=== PATIENT | female | born 1960 | race Caucasian/White ===

== ENCOUNTER 2016-08-13 00:52 | Day surgery (SDC) | payer OTHER ==
[~2016-08-13] VITALS: Ht 168.9 cm; Wt 104.0 kg
[2016-08-13] VITALS (10 sets, daily range): BP systolic 119–141; BP diastolic 70–90; PULSE 71–89; RESP 13–18; O2SAT 100
[~2016-08-13 00:52] MED LIST: ALPR0.5T PO; BUTA1CAP45 PO; CA C1TAB86 PO; CHOL10008 PO; EFLO30CR2 TP; FERR-83 PO; FOLI1TAB5 PO; LEVO125T2 PO; LIP40 PO; LIRA0.6P SQ; LISI2.5T PO; METF500T4 PO; OMEP20CA11 PO; RES15 PO; SPIR50TA2 PO; TERB15CR18 TP; TERB250T11 PO; ZOLM5TAB8 PO
[2016-08-13] MEDS ORDERED: 0.9% Sodium Chloride 1,000 ML IV ONE (07:01)
[2016-08-13] MEDS ORDERED: Ondansetron 2 mg/mL 2 mL Inj ONE (07:53)
[2016-08-13 07:59] LABS: BASOPHILS % (AUTO) 0.2 % (0-3); EOSINOPHILS % (AUTO) 1.2 % (0-5); MONOCYTES % (AUTO) 7.7 % (4-12); Mean Corpuscular Hemoglobin 30.2 pg (27.0-35.0); Mean Corpuscular Volume 90.1 fL (81-100); Platelet Count 233 bil/L (150-400)
[2016-08-13 08:20] LABS: INR 0.95 ratio
[2016-08-13] MEDS ORDERED: Heparin 1,000 Units/500 mL NS Premix IV ONE (08:35)
[2016-08-13] MEDS ORDERED: Heparin 10,000 Unit/1,000 mL NS Premix IV ONE (08:35)
[2016-08-13] MEDS ORDERED: fentaNYL-PF 50 mCg/mL 2 mL Inj ONE (08:59)
[2016-08-13] MEDS ORDERED: 0.9% Sodium Chloride 250 ML IV PRN (09:32)
[2016-08-13] MEDS ORDERED: 0.9% Sodium Chloride 1,000 ML IV PRN (09:32)
[2016-08-13] MEDS ORDERED: Ondansetron 2 mg/mL 2 mL Inj IVPUSH PRN (09:35)
[2016-08-13] MEDS ORDERED: Atropine 1 mg/10 mL (Code) Syringe IVPUSH PRN (09:35)
[2016-08-13] MEDS ORDERED: HYDROcodone-APAP 5-325 mg Tablet PO PRN (09:35)
--- NOTE | 2016-08-13 13:19 | NUR ---
Discharge Pt discharged to home with family. VSS and WNL on RA, groin site soft non tender at time of discharge. Pt stated verbal understanding of discharge instructions regarding use of home medications, signs of worsening condition and follow up appointments.Pt left with personal belongings, discharge paperwork, IV dcd intact at approximately 1215.
--- NOTE | 2016-08-15 18:23 | CS94 ---
[place] [address] DIAGNOSTIC CARDIAC CATHETERIZATION PATIENT: RICO HEAD : 1960 MR#: [id number] ADMIT: 08/13/2016 JOB ID: [id number] SERVICE DATE: 08/13/2016 INDICATION: Chest pains, history of abnormal stress test. CONSENT: The patient was explained the risks, benefits, and alternatives of the procedure. Informed signed consent was obtained and placed in the chart. PROCEDURE: The patient was brought to the geotechnical laboratory technician and placed on the cath table. Both groins were prepped and draped in the usual sterile manner. Using a modified Seldinger technique, a 6-Greek arterial sheath was placed in the right femoral artery after achieving topical anesthesia using 1% lidocaine. FL4 catheter was advanced over the guidewire and placed in the ostium of the left main coronary artery. Multiple views of the right coronary artery were obtained in multiple projections. FR4 catheter was used to engage the right coronary artery. Multiple views of the right coronary artery were obtained in multiple projections. A pigtail catheter was advanced over a guidewire and placed in the left ventricle. Left ventricular hemodynamics were obtained. Subsequently, left ventricular cineangiography was performed. After the angiography, a pullback maneuver was performed to assess for any left ventricular aortic gradient. After the procedure, the patient was taken out of the geotechnical laboratory technician in stable condition. The total fluoro time was 1.5 minutes and total contrast used 80 cc. FINDINGS: Hemodynamics: The left ventricular end-diastolic pressure was 13 mmHg. There was no left ventricular to aortic gradient. CORONARY ANGIOGRAPHY: 1. The left main coronary artery is short and bifurcates into left anterior descending artery and left circumflex coronary artery. Left anterior descending artery demonstrates mild luminal irregularities in the mid segment. The distal segments demonstrate no significant disease. The diagonal branch arising from the LAD again demonstrates no significant disease. The septal perforators are noted arising from the LAD. The left circumflex coronary artery is moderate size and moderate caliber vessel which continues as an obtuse marginal branch. The mid and distal circumflex traverses into the posterior AV groove. 2. The right coronary artery is a dominant vessel, giving off a PDA and posterolateral branches. No significant disease noted in the right coronary artery. LEFT VENTRICULAR CINEANGIOGRAPHY: The LV systolic function is normal. The aortic root size appears to be normal. No significant mitral regurgitation noted. IMPRESSION: 1. Mild luminal irregularities noted in the coronary arteries. 2. Normal left ventricular systolic function. 3. Normal left ventricular end-diastolic pressure. CC: [facility], [address] [place] [address], [id number].
== END 2016-08-13 23:59 | disposition home or self-care (01) ==
LOC: SOUO 00:52
PROVIDERS: ATTEND Internal Medicine Cardiovascular Disease
DX: R07.89 Other chest pain (principal); R94.39 Abnormal result of other cardiovascular function study; K21.9 Gastro-esophageal reflux disease without esophagitis; E03.9 Hypothyroidism, unspecified; I34.0 Nonrheumatic mitral (valve) insufficiency; E66.01 Morbid (severe) obesity due to excess calories; Z68.37 Body mass index [BMI] 37.0-37.9, adult; E11.9 Type 2 diabetes mellitus without complications; Z79.84 Long term (current) use of oral hypoglycemic drugs
CPT/HCPCS: 36415; 80048; 85025; 85610; 93458; 99152; 99153; C1760; C1769; J1644; J2060; J2250; J2405; J3010; J7030; Q9967